=== PATIENT | female | born 1960 | race African-American/Black ===

== ENCOUNTER 2017-07-26 08:42 | Emergency (ER) | payer MEDICAID ==
[~2017-07-26] VITALS: Ht 162.6 cm; Wt 68.0 kg
[~2017-07-26 08:42] MED LIST: AZITHROMYCIN250 MG ORAL; BENADRYL25 MG ORAL; BENADRYL50 MG PO; CLARITIN10 M2 ORAL; IBUPROFEN600 M1 PO; NKM; PREDNISONE20 MG ORAL
[2017-07-26 08:47] VITALS: BP 126/83
[2017-07-26] MEDS ORDERED: SYNTHROID75 MCG ORAL (08:51)
[2017-07-26] MEDS ORDERED: IBUPROFEN600 MG ORAL (09:21)
[2017-07-26] MEDS ORDERED: AMOXICILLIN500 MG ORAL (09:21)
[2017-07-26] MEDS ORDERED: Dexamethasone 4mg/ml vial IM ONE (09:30)
[2017-07-26 09:32] VITALS: BP 126/83
--- NOTE | 2017-07-26 10:20 | Emergency Room Report ---
History of Present Illness General Chief Complaint: Sore Throat Source: Patient, Medical Record Present Illness HPI 56-year-old female presents ED complaining of sore throat x3 days. Denies any fevers chills. States it is difficult to swallow. Pain is a 9/10, burning, nonradiating. Denies cough. Denies earache. Denies sick contacts recent travel. No other aggravating relieving factors. Denies any other associated symptoms Allergies: Coded Allergies: No Known Allergies (Unverified , 01/26/13) Patient History Past Medical History: none Past Surgical History: none Pertinent Family History: none Social History: Denies: smoking, alcohol use, drug use Last Menstrual Period: 6 years ago Now: No Immunizations: UTD Reviewed Nursing Documentation: PMH: Agreed, PSxH: Agreed Nursing Documentation-PMH Past Medical History: No History, Except For Review of Systems All Other Systems: negative except mentioned in HPI Physical Exam Vital Signs Date Time Temp Pulse Resp B/P (MAP) Pulse Ox O2 Delivery O2 Flow Rate FiO2 07/26/17 08:47 98.2 99 18 126/83 98 Room Air Sp02 EP Interpretation: reviewed, normal General Appearance: no apparent distress, alert, GCS 15, non-toxic Head: normocephalic Eyes: bilateral eye normal inspection, bilateral eye PERRL ENT: hearing grossly normal, no angioedema, normal voice, TMs + canals normal, pharyngeal erythema, tonsillar exudate Neck: normal inspection Respiratory: chest non-tender, lungs clear, normal breath sounds, speaking full sentences Cardiovascular #1: normal inspection Gastrointestinal: normal inspection Rectal: deferred Genitourinary: no CVA tenderness Musculoskeletal: normal inspection Neurologic: alert, oriented x3, responsive, motor strength/tone normal, sensory intact, speech normal Psychiatric: judgement/insight normal, memory normal, mood/affect normal, no suicidal/homicidal ideation Skin: normal inspection Lymphatic: normal inspection Medical Decision Making Diagnostic Impression: Primary Impression: Pharyngitis Qualified Codes: J02.9 - Acute pharyngitis, unspecified ER Course Hospital Course 56-year-old female presents to ED complaining of sore throat Differential diagnoses include: URI, pharyngitis, otitis media Clinical course Patient placed on stretcher. After initial history, physical exam reveals a female in no acute distress. Bilateral TM unremarkable. There is pharyngeal erythema w/ tonsillar exudates. No lymphadenopathy. Clinical findings consistent with pharyngitis. Given Decadron in ED Diagnosis - pharyngitis Stable and discharged home with prescriptions for Motrin, amoxicillin. Instructed to followup with PMD. return to ED if symptoms recur or worsen Last Vital Signs Date Time Temp Pulse Resp B/P (MAP) Pulse Ox O2 Delivery O2 Flow Rate FiO2 07/26/17 09:32 98.2 99 18 126/83 98 Room Air Status: improved Disposition: HOME, SELF-CARE Condition: Stable Scripts Amoxicillin* (AMOXIL*) 500 Mg Capsule 500 MG ORAL THREE TIMES A DAY, #21 CAP Prov: ZACARIAS GRANDE M.D. 07/26/17 Ibuprofen* (MOTRIN*) 600 Mg Tablet 600 MG ORAL Q8H Y for For Pain, #30 TAB 0 Refills Prov: ZACARIAS GRANDE M.D. 07/26/17 Referrals: NOT CHOSEN IPA/,REFERRING (PCP) Patient Instructions: Pharyngitis, [id number] ZACARIAS GRANDE M.D. Jul 26, 2017 10:20
== END 2017-07-26 09:32 | disposition home or self-care (01) ==
LOC: EMR 09:17
DX: J02.9 Acute pharyngitis, unspecified (principal)
CPT/HCPCS: 96372; 99283; J1100